=== PATIENT | male | born 1975 | race Caucasian/White ===

== ENCOUNTER 2018-07-08 06:22 | Emergency (ER) | payer OTHER ==
--- NOTE | 2018-07-08 06:48 | EDPHY ---
H & P Stated Complaint: left flank pain that radiates into groin Time Seen by Provider: 07/08/18 06:33 - Personal History Current Tetanus/Diphtheria Vaccine: Yes Current Tetanus Diphtheria and Acellular Pertussis (TDAP): Yes Tetanus Vaccine Date: 2017 - Medical/Surgical History Hx Asthma: No Hx Chronic Respiratory Disease: No Hx Diabetes: No Hx Cardiac Disease: No Hx Renal Disease: No Hx Cirrhosis: No Hx Alcoholism: No Hx HIV/AIDS: No Hx Splenectomy or Spleen Trauma: No Other PMH: denies - Social History Smoking Status: Never smoked Constitutional: Initial Vital Signs Temperature (C) 36.4 C 07/08/18 06:27 Heart Rate 64 07/08/18 06:27 Respiratory Rate 16 07/08/18 06:27 Blood Pressure 141/82 H 07/08/18 06:27 O2 Sat (%) 96 07/08/18 06:27 O2 Delivery Mode Room Air Allergies/Adverse Reactions: No Known Allergies Allergy (Unverified 07/08/18 06:29) Home Medications: Medication Instructions Recorded NK [No Known Home Meds] 07/08/18 Medical Decision Making ED Course/Re-evaluation: CHIEF COMPLAINT: Left flank and left groin pain HISTORY OF PRESENT ILLNESS: 43-year-old male with no past medical history. He was a woken at about 330 this morning with left flank pain. He thought it was potentially a muscle spasm of some sort. But then the pain progressed to significant severity and radiating down toward his left testicle and felt like he was literally being punched in the testicle. He gets nauseated with the waves of pain. The pain does come in waves and currently is not present. Additionally he denies fevers chills or any systemic illness. He has never had symptoms like this before. He has never had abdominal surgeries. REVIEW OF SYSTEMS: A comprehensive 10 system review of systems is otherwise negative aside from elements mentioned in the history of present illness and medical decision making. PHYSICAL EXAM: HR, BP, O2 Sat, RR. Temp noted General Appearance: Alert, well hydrated, appropriate, and non-toxic appearing. Head: Atraumatic without scalp tenderness or obvious injury Eyes: Pupils equal, round, reactive to light and accommodation, EOMI, no trauma , no injection. Ears: Clear bilaterally, no perforation, normal landmarks Nose: Atraumatic, no rhinorrhea, clear. Throat: There is no erythema or exudates, no lesions, normal tonsils, mucus membranes moist. Neck: Supple, 2+ carotid upstroke, nontender, no lymphadenopathy. Respiratory: No retractions, no distress, no wheezes, and no accessory muscle use. Lungs are clear to auscultation bilaterally. Cardiovascular: Regular rate and rhythm, no murmurs, rubs, or gallops. Bilateral carotid, radial, dorsalis pedis, and posterior tibial pulses intact. Good capillary refill all extremities. Gastrointestinal: Abdomen is soft, nontender, non-distended, no masses, no rebound, no guarding, no peritoneal signs. I cannot reproduce the Musculoskeletal: Normal active ROM of all extremities, atraumatic. Neurological: Alert, appropriate, and interactive. The patient has normal DTRs and non-focal cranial nerves, motor, sensory, and cerebellar exam. Skin: No rashes, good turgor, no nodules on palpation. Past medical history: None Past surgical history: None Family history: No family history of kidney stones otherwise noncontributory Social history: , employed, does not abuse tobacco drugs or alcohol, lives in the [facility] DIAGNOSTICS/PROCEDURES/CRITICAL CARE TIME: Study: CT of the abdomen and pelvis without contrast Indication: Left flank and abdominal and groin pain possibly kidney stone Results: CT scan of the abdomen and pelvis was obtained. The results of the study are: 5 mm left ureteral stone with moderate hydroureter hydronephrosis at the level of mid lumbar 3. Also some mild constipation. The study was read by the radiologist, Dr. Mayank Nolan . I viewed the images myself on the PACS system. DIFFERENTIAL DIAGNOSIS: The differential diagnosis for the patient's flank pain included but was not limited to musculoskeletal causes, kidney stone, pyelonephritis, shingles, diverticulitis, appendicitis, and aortic aneurysm. MEDICAL DECISION MAKING: This patient has a history and physical exam consistent most likely with a kidney stone. I cannot reproduce the pain at all and the pain is currently gone but comes in significant waves. He has never had symptoms like this before. His urinalysis is pending and we are performing a noncontrast CT scan. The patient is not having pain and therefore does not want an IV for any pain or anti nausea meds right now if he gets symptomatic we will certainly put an IV in. This patient has 1+ blood in his urine. No infection in his urine. He is pain free. I have given him Flomax. I will write him prescription for pain medicine and additional Flomax and he will follow up with Urology. - Data Points Laboratory Results: 07/08/18 06:32 Urine Color YELLOW Urine Appearance CLEAR Urine pH 6.0 (5.0-7.5) Ur Specific [place] 1.020 (1.002-1.030) Urine Protein NEGATIVE (NEGATIVE) Urine Ketones NEGATIVE (NEGATIVE) Urine Blood 1+ H (NEGATIVE) Urine Nitrate NEGATIVE (NEGATIVE) Urine Bilirubin NEGATIVE (NEGATIVE) Urine Urobilinogen NEGATIVE EU EU (0.2-1.0) Ur Leukocyte Esterase NEGATIVE (NEGATIVE) Urine RBC 25-50 /hpf H /hpf (0-3) Urine WBC 5-10 /hpf H /hpf (0-3) Ur Epithelial Cells NONE SEEN /lpf /lpf (NONE-1+) Calcium Oxalate Crystal PRESENT /hpf /hpf (NONE-1+) Urine Mucus TRACE /lpf /lpf (NONE-1+) Urine Glucose NEGATIVE (NEGATIVE) Departure - Departure Disposition: Home, Routine, Self-Care Clinical Impression: Renal colic on left side, Kidney stone on left side Condition: Good Instructions: Kidney Stones (ED), Renal Colic (ED) Additional Instructions: Take 1 Flomax daily until he passed the kidney stone. Use [place] pain med as needed but try ibuprofen 600-800 mg 1st. If he become nauseated and can't stay hydrated return. If you are worse return. Follow-up with Dr. Luu from Urology Referrals: ELMIRA MONTOYA [Primary Care Provider] - As per Instructions Zaid Luu MD [Medical Doctor] - 2-3 days, call for appt.
[2018-07-08] MEDS ORDERED: TAMSULOSIN HCL 0.4 MG CAP PO ONE (07:17)
[2018-07-08 07:36] VITALS: BP 124/75
== END 2018-07-08 07:36 | disposition home or self-care (01) ==
DX: N13.2 Hydronephrosis with renal and ureteral calculous obstruction (principal); N23 Unspecified renal colic; K59.00 Constipation, unspecified